=== PATIENT | female | born 1960 | race African-American/Black ===

== ENCOUNTER 2018-06-16 09:29 | Observation (INO) | payer MEDICARE ==
--- NOTE | 2018-06-16 10:15 | PDOC ---
History of Present Illness - General History Source: Patient Exam Limitations: No Limitations - History of Present Illness Initial Comments: 06/16/18 10:22 The patient is a 58 year old with past medical history here today for evaluation of headache and weakness. The patient reports that she has had persistent headache that radiates from the back of her head down her left arm and leg that occurs almost everyday for the past 3 months. She also notes she has been having left sided weakness in both her upper and lower extremities for the past 3 months. She reports that her symptoms are worse today. Patient denies lightheadedness. Denies fever, chills. Denies chest pain, shortness of breath. Denies nausea, vomiting, diarrhea, abdominal pain. Allergies: NKA Social history: Patient denies tobacco, alcohol, and drug use. PCP: none <Rajiv Diaz - Last Filed: 06/16/18 10:21> <James Bahena - Last Filed: 06/16/18 14:33> - General Chief Complaint: Head/Neck problem Stated Complaint: LEFT SIDED PAIN Time Seen by Provider: 06/16/18 10:10 NIH Stroke Scale - Last Known Well Date/Time & Onset Date Last Known Well: 02/20/18 - Initial Evaluation Level of consciousness: Alert Ask patient the month and their age: Answers both correctly Ask patient to open & close eyes; make fist and let go: Obeys both correctly Best gaze (horizontal eye movement): Normal Visual field testing: No visual field loss Facial paresis (Show teeth/raise eyebrows/close eyes tight): Normal symmetrical movement Motor Function: Left Arm: Drift Motor Function: Right Arm: Normal (extends arm 90 (or 45) degrees for 10 seconds without drift Motor Function: Left Leg: Drift Motor Function: Right Leg: Normal (extends leg 30 degrees for 5 seconds without drift) Limb Ataxia: No ataxia Sensory(Use pinprick test arms,legs,trunk,face/side to side): Normal Best language (Describe picture, name items, read sentences): No Aphasia Dysarthria (read several words): Normal articulation Extinction and Inattention: No abnormality - Total Score NIH Stroke Scale Score: 2 <James Bahena - Last Filed: 06/16/18 14:33> Past History <Rajiv Diaz - Last Filed: 06/16/18 10:21> - Past Medical History COPD: No - Suicide/Smoking/Psychosocial Hx Smoking History: Never smoked Hx Alcohol Use: No Drug/Substance Use Hx: No <James Bahena - Last Filed: 06/16/18 14:33> - Past Medical History Allergies/Adverse Reactions: Allergies Allergy/AdvReac Type Severity Reaction Status Date / Time No Known Allergies Allergy Verified 06/16/18 09:44 Review of Systems - Review of Systems Able to Perform ROS?: Yes Comments:: 06/16/18 10:22 A complete review of 10 out of 10 review of systems is taken and is negative apart from what is previously mentioned below and in the HPI. <Rajiv Diaz - Last Filed: 06/16/18 10:21> *Physical Exam - Vital Signs Last Vital Signs Temp Pulse Resp BP Pulse Ox 98.5 F 80 60 H 114/61 99 06/16/18 09:40 06/16/18 09:40 06/16/18 09:40 06/16/18 09:40 06/16/18 09:40 - Physical Exam Comments: 06/16/18 10:22 Vitals: Triage vital signs reviewed General Appearance: No acute distress, well nourished, well developed Head: Atraumatic Eyes: Pupils equal reactive round, extraocular movement intact Neck: Supple; No nuchal rigidity Chest Wall: Nontender Cardiac: Regular rate and rhythm, no murmurs, no rubs, no gallops Lungs: Clear to auscultation bilateral, good air movement bilaterally Abdomen: Soft, nondistended, normal bowel sounds, nontender to palpation Extremities: Full range of motion to all extremities, no cyanosis, clubbing, or edema Skin: Warm and dry, no rashes or lesions, no rash, no petechiae Neuro: + 4+/5 weakness to left upper and lower extremities. AOX3; Cranial Nerves 2-12 grossly intact, Sensation intact to all extremities Psych: Normal mood, normal affect <Rajiv Diaz - Last Filed: 06/16/18 10:21> - Vital Signs Last Vital Signs Temp Pulse Resp BP Pulse Ox 98.5 F 80 60 H 114/61 99 06/16/18 09:40 06/16/18 09:40 06/16/18 09:40 06/16/18 09:40 06/16/18 09:40 <James Bahena - Last Filed: 06/16/18 14:33> Moderate Sedation - Procedure Monitoring Vital Signs: Procedure Monitoring Vital Signs Temperature 98.5 F 06/16/18 09:40 Pulse Rate 80 06/16/18 09:40 Respiratory Rate 60 H 06/16/18 09:40 Blood Pressure 114/61 06/16/18 09:40 O2 Sat by Pulse Oximetry (%) 99 06/16/18 09:40 <Rajiv Diaz - Last Filed: 06/16/18 10:21> - Procedure Monitoring Vital Signs: Procedure Monitoring Vital Signs Temperature 98.5 F 06/16/18 09:40 Pulse Rate 80 06/16/18 09:40 Respiratory Rate 60 H 06/16/18 09:40 Blood Pressure 114/61 06/16/18 09:40 O2 Sat by Pulse Oximetry (%) 99 06/16/18 09:40 <James Bahena - Last Filed: 06/16/18 14:33> ED Treatment Course - LABORATORY CBC & Chemistry Diagram: 06/16/18 11:17 06/16/18 12:00 <James Bahena - Last Filed: 06/16/18 14:33> Medical Decision Making - Medical Decision Making 06/16/18 10:23 The patient is a 58 year old with past medical history here today for evaluation of headache and weakness. <Rajiv Diaz - Last Filed: 06/16/18 10:21> - Medical Decision Making 06/16/18 14:27 Patient with 3 month history of headaches left-sided weakness the symptoms seem to wax and wane with the severity of her headaches On examination today she had a notable for plus out of 5 upper and lower extremity weakness on the left She was not a candidate for TPA given that the symptoms have been going on for 3 months Her NIHSS stroke scale score is 2. Her CAT scan was nonischemic. She was ordered for full dose aspirin, an MRI was ordered and a neurology consultation was placed She'll be admitted to the medicine service for further management. <aJmes Bahena - Last Filed: 06/16/18 14:33> *DC/Admit/Observation/Transfer - Attestations Scribe Attestion: 06/16/18 10:23 Documentation prepared by LILLY Culp, acting as medical receptionist medical assistant for James Bahena MD. <Rajiv Diaz - Last Filed: 06/16/18 10:21> - Discharge Dispostion Decision to Admit order: Yes <James Bahena - Last Filed: 06/16/18 14:33> Diagnosis at time of Disposition: Weakness
[2018-06-16 11:25] LABS: BASO % 1.1 % (0-2.0); EOS % 1.6 % (0-4.5); HEMATOCRIT 36.8 % (32.4-45.2); HEMOGLOBIN 13.2 GM/dL (10.7-15.3); LYMPH % 34.7 % (8-40); MCH 34.3 pg (25.7-33.7); MCHC 35.8 g/dl (32.0-36.0); MEAN CELL VOLUME 95.6 fl (80-96); MEAN PLT VOLUME 7.8 fl (7.5-11.1); MONO % 8.7 % (3.8-10.2); NEUT % 53.9 % (42.8-82.8); PLATELET COUNT 237 K/MM3 (134-434); RBC 3.85 M/mm3 (3.60-5.2); RDW 13.3 % (11.6-15.6); WHITE BLOOD COUNT 4.5 K/mm3 (4.0-10.0)
[2018-06-16 11:52] LABS: INR 1.01 (0.83-1.09); PROTHROMBIN TIME (PATIENT) 11.9 SEC (9.7-13.0)
[2018-06-16] MEDS ORDERED: ACETAMINOPHEN 1000 MG/100 ML VIAL (NON FORMULARY) IVPB ONE (12:02)
[2018-06-16] MEDS ORDERED: METOCLOPRAMIDE HCL INJECTION 10 MG/2 ML VIAL IVPB ONE (12:02)
[2018-06-16] MEDS ORDERED: ACETAMINOPHEN INJECTION 100 ML IVPB ONE (12:37)
[2018-06-16] MEDS ORDERED: METOCLOPRAMIDE HCL INJECTION 10 MG/2 ML VIAL ONE ×2 (12:37→12:44)
[2018-06-16 14:03] LABS: ALBUMIN 3.9 g/dl (3.4-5.0); ALK PHOS 68 U/L (45-117); ANION GAP 6 MMOL/L (8-16); BILIRUBIN,TOTAL 0.2 mg/dL (0.2-1); BLOOD UREA NITROGEN 14 mg/dL (7-18); CALCIUM 8.7 mg/dL (8.5-10.1); CHLORIDE 108 mmol/L (98-107); CO2 27 mmol/L (21-32); CREATININE 0.7 mg/dL (0.55-1.3); GLUCOSE,RANDOM 82 mg/dL (74-106); SGOT/AST 14 U/L (15-37); SGPT/ALT 24 U/L (13-61); SODIUM 140 mmol/L (136-145); TOT PROT 7.5 g/dl (6.4-8.2)
[2018-06-16] MEDS ORDERED: ASPIRIN 325 MG ENTERIC COATED TABLET (FP) PO ONE (14:30)
[2018-06-16] MEDS ORDERED: ASPIRIN COATED 81 MG TABLET.EC ONE (15:04)
[2018-06-16] MEDS ORDERED: ACETAMINOPHEN 325 MG TABLET (FP) PO PRN (15:21)
--- NOTE | 2018-06-16 15:25 | HP ---
Admitting History and Physical - Primary Care Physician PCP: None - Admission Chief Complaint: I have a headache History of Present Illness: Ms Garcia is a very pleasant 58 year old female who comes in with 3 month history of L sided headache. She says that it happens everyday. It is not constant but she does not know what makes it come on. Sometimes she says the pain goes away completely, other times she says it lessens but is still present. She cannot tell me how long a normal episode lasts. She has left arm weakness and tingling associated with it. She denies lightheadedness, dizziness , photophobia, phonophobia, chest pain, shortness of breath, nausea, vomiting, abdominal pain, diarrhea, constipation, difficulty or pain on urination, or swelling. History Source: Patient Limitations to Obtaining History: No Limitations - Past Medical History Additional Past Medical History: No PMHx - Past Surgical History Past Surgical History: Yes: None - Smoking History Smoking history: Never smoked - Alcohol/Substance Use Hx Alcohol Use: No History of Substance Use: reports: None - Social History ADL: Independent History of Recent Travel: No Home Medications - Allergies Allergies/Adverse Reactions: Allergies Allergy/AdvReac Type Severity Reaction Status Date / Time No Known Allergies Allergy Verified 06/16/18 09:44 Family Disease History - Family Disease History Family History: Unremarkable Family Disease History: Other: Father (, unknown cause) Review of Systems Findings/Remarks: Full review of systems obtained, as per HPI and otherwise negative Physical Examination Vital Signs: Vital Signs Temperature 36.9 C 06/16/18 09:40 Pulse Rate 73 06/16/18 14:20 Respiratory Rate 18 06/16/18 14:20 Blood Pressure 112/72 06/16/18 14:20 O2 Sat by Pulse Oximetry (%) 99 06/16/18 14:20 Constitutional: Yes: Well Nourished, No Distress, Calm Eyes: Yes: Conjunctiva Clear, EOM Intact, PERRL HENT: Yes: Atraumatic, Normocephalic Cardiovascular: Yes: Regular Rate and Rhythm. No: Gallop, Murmur, Rub Respiratory: Yes: Regular, CTA Bilaterally. No: Rales, Rhonchi, Wheezes Gastrointestinal: Yes: Normal Bowel Sounds, Soft. No: Distention, Tenderness Extremities: Yes: WNL Edema: No ...Motor Strength: LUE (4/) Labs: CBC, BMP 06/16/18 11:17 06/16/18 12:00 Imaging - Results Cat Scan: Report Reviewed Other: Other (ECHO read reviewed) Problem List - Problems (1) Weakness Assessment/Plan: -concern for possible chronic stroke -admit to telemetry observation -ECHO reviewed -carotid ultrasound ordered -begin low dose aspirin -check lipid panel -MRI ordered -neurology consulted Code(s): R53.1 - WEAKNESS
--- NOTE | 2018-06-16 15:44 | ECHO ---
Version: 1 Name: DORA BLANCO Exam: Adult Echocardiogram Study Date: 06/16/2018, 3:10 PM Age: 58 Years MMode/2D Measurements & Calculations IVSd: 0.96 cm LVIDs: 1.96 cm LVIDd: 2.25 cm LVPWd: 1.09 cm ACS: 1.94 cm LVOT diam: 1.90 cm Doppler Measurements & Calculations Lat Peak E' [place]: 7.2 cm/sec Med Peak E' [place]ino: 7.8 cm/sec Left Ventricle The left ventricular size, thickness and function are normal. Ejection Fraction = 55-60%. Right Ventricle The right ventricle is grossly normal size. The right ventricular systolic function is grossly leatha l. Atria Normal left and right atrial size and function. Grossly intact interatrial septum with no obvious sh unt by color doppler. Mitral Valve The mitral valve is normal in structure and function. There is no mitral valve stenosis. There is mi ld mitral regurgitation. Tricuspid Valve The tricuspid valve is normal in structure and function. There is mild tricuspid regurgitation. Aortic Valve There is mild aortic sclerosis.;. No hemodynamically significant valvular aortic stenosis. No aortic regurgitation is present. Pulmonic Valve The pulmonic valve is not well seen, but is grossly normal. Great Vessels The aortic root is normal size. Pericardium/Pleura There is no pericardial effusion. Summary Statements The left ventricular size, thickness and function are normal Ejection Fraction = 55-60%. There is mild mitral regurgitation. There is mild tricuspid regurgitation. There is mild aortic sclerosis.; There is no pericardial effusion. Grossly intact interatrial septum with no obvious shunt by color doppler MD Hawley *Francescone 06/16/2018, 3:44 PM Ordering Physician: Deny Gray Performed By: Latasha Bliss
--- NOTE | 2018-06-16 15:51 | EKG ---
Test Reason : Blood Pressure : / mmHG Vent. Rate : 073 BPM Atrial Rate : 073 BPM P-R Int : 168 ms QRS Dur : 066 ms QT Int : 372 ms P-R-T Axes : 062 033 034 degrees QTc Int : 409 ms NORMAL SINUS RHYTHM NORMAL ECG NO PREVIOUS ECGS AVAILABLE Confirmed by ABIMBOLA BELL, PIA ([id number]) on 06/16/2018 3:51:35 PM Referred By: Confirmed By:PIA DIALY MD
[2018-06-16 16:26] VITALS: BMI 29.5
[2018-06-17 07:33] LABS: BASO % 0.8 % (0-2.0); EOS % 2.6 % (0-4.5); HEMATOCRIT 35.5 % (32.4-45.2); HEMOGLOBIN 12.6 GM/dL (10.7-15.3); LYMPH % 40.2 % (8-40); MCH 33.8 pg (25.7-33.7); MCHC 35.5 g/dl (32.0-36.0); MEAN CELL VOLUME 95.4 fl (80-96); MEAN PLT VOLUME 7.5 fl (7.5-11.1); MONO % 8.9 % (3.8-10.2); NEUT % 47.5 % (42.8-82.8); PLATELET COUNT 238 K/MM3 (134-434); RBC 3.72 M/mm3 (3.60-5.2); RDW 13.2 % (11.6-15.6); WHITE BLOOD COUNT 4.3 K/mm3 (4.0-10.0)
[2018-06-17 08:30] LABS: ANION GAP 8 MMOL/L (8-16); BLOOD UREA NITROGEN 15 mg/dL (7-18); CHLORIDE 107 mmol/L (98-107); CO2 24 mmol/L (21-32); CREATININE 0.8 mg/dL (0.55-1.3); GLUCOSE,RANDOM 108 mg/dL (74-106); MAGNESIUM 1.8 mg/dL (1.8-2.4); PHOSPHOROUS 3.9 mg/dL (2.5-4.9); POTASSIUM 4.4 mmol/L (3.5-5.1); SODIUM 140 mmol/L (136-145)
[2018-06-17 08:33] LABS: CHOLESTEROL 212 mg/dL (50-200); HDL CHOLESTEROL 88 mg/dL (40-60); TRIGLYCERIDES 95 mg/dL (0-150)
[2018-06-17] MEDS: ASPIRIN 81 MG CHEWABLE TABLETS PO SCH (09:14)
--- NOTE | 2018-06-17 11:47 | CON.NEURO ---
Consult Consult Specialty:: NEUROLOGY-[facility] Reason for Consultation:: Headache/Weakness - History of Present Illness History of Present Illness: Ms Garcia is a very pleasant 58 year old female who comes in with 3 month history of L sided headache. She says that it happens everyday. It is not constant but she does not know what makes it come on. Sometimes she says the pain goes away completely, other times she says it lessens but is still present. She cannot tell me how long a normal episode lasts. She has left arm weakness and tingling associated with it. She denies lightheadedness, dizziness , photophobia, phonophobia, chest pain, shortness of breath, nausea, vomiting, abdominal pain, diarrhea, constipation, difficulty or pain on urination, or swelling. Ms. Garcia tells me she has had above pain in neck x 3 years, was internittent but became near daily 3 months ago. Pain is cervical on left side, worsens with neck movement, pressure type, 6/10 intensity, radiates up to left occiput and down to medial border of scapula.+ left arm paresthesias, at times these occur in left leg, no particular distribution. denies visual symptoms - Past Surgical History Past Surgical History: Yes: None - Alcohol/Substance Use Hx Alcohol Use: No History of Substance Use: reports: None - Smoking History Smoking history: Never smoked Have you smoked in the past 12 months: No - Social History ADL: Independent History of Recent Travel: No Home Medications - Allergies Allergies/Adverse Reactions: Allergies Allergy/AdvReac Type Severity Reaction Status Date / Time No Known Allergies Allergy Verified 06/16/18 09:44 Family Disease History - Family Disease History Family Disease History: Other: Father (, unknown cause) Physical Exam-Neuro Vital Signs: Vital Signs Temperature 98.5 F 06/17/18 08:30 Pulse Rate 90 06/17/18 08:30 Respiratory Rate 20 06/17/18 08:30 Blood Pressure 145/70 06/17/18 08:30 O2 Sat by Pulse Oximetry (%) 95 06/17/18 06:00 Labs: CBC, BMP 06/17/18 07:00 06/17/18 07:00 INR, PTT INR 1.01 (0.83-1.09) 06/16/18 11:17 - Neuro Exam DTR's: 0 Left Tricep, 2+ Left Bicep, 2+ Right Bicep, 2+ Right Tricep, 2+ Left Brachioradialis, 2+ Right Brachioradialis, 2+ Left Achilles, 2+ Right Achilles Motor Strength: 4/5: Left Arm (Left Deltoid/Biceps 4/5 but may be effort related weakness), 5/5: Right Arm, Left Leg, Right Leg Imaging - Results Cat Scan: Report Reviewed (Reported without acuite abn) MRI: Image Reviewed (No DWI abn) Assessment/Plan Ms. Garcia has cervical pain radiating in left C5/6 distribution with possible weakness in Deltoid/biceps, absent left triceps jerk. I doubt any ischemic event , likely mechanical radiculopathy.MRI brain report awaited. Suggest: MRI Cspine, ESR/CRP. Toradol 30mg i/m q hours x 5 doses, this will take care of her pain for now. Nortryptilline 25mg hs Further management after c spine imaging- Than youJuanis MD
--- NOTE | 2018-06-17 16:46 | PN ---
Progress Note, Physician Chief Complaint: Ms Garcia still has weakness in LUE, currently headache has resolved. No cp, sob , n/v. - Current Medication List Current Medications: Active Medications Acetaminophen (Tylenol -) 650 mg PO Q4H PRN PRN Reason: PAIN 1-3 Last Admin: 06/17/18 11:46 Dose: 650 mg Aspirin (Asa -) 81 mg PO DAILY JAGRUTI Last Admin: 06/17/18 09:14 Dose: 81 mg Ketorolac Tromethamine (Toradol Injection -) 30 mg IVPUSH Q8H-IV JAGRUTI Stop: 06/19/18 02:01 - Objective Vital Signs: Vital Signs Temperature 36.9 C 06/17/18 08:30 Pulse Rate 90 06/17/18 08:30 Respiratory Rate 20 06/17/18 08:30 Blood Pressure 145/70 06/17/18 08:30 O2 Sat by Pulse Oximetry (%) 95 06/17/18 06:00 Constitutional: Yes: Well Nourished, No Distress, Calm Cardiovascular: Yes: Regular Rate and Rhythm. No: Gallop, Murmur, Rub Respiratory: Yes: Regular, CTA Bilaterally. No: Rales, Rhonchi, Wheezes Gastrointestinal: Yes: Normal Bowel Sounds, Soft. No: Distention, Tenderness Extremities: Yes: WNL Edema: No Labs: CBC, BMP 06/17/18 07:00 06/17/18 07:00 INR, PTT INR 1.01 (0.83-1.09) 06/16/18 11:17 Problem List - Problems (1) Weakness Assessment/Plan: -appreciate neurology assistance -MRI head performed, awaiting official read -MRI c-spine ordered -will also follow up ESR/CRP Code(s): R53.1 - WEAKNESS
[2018-06-17] MEDS: KETOROLAC TROMETHAMINE 30 MG/1 ML VIAL IVPUSH SCH (18:23)
[2018-06-18] MEDS: KETOROLAC TROMETHAMINE 30 MG/1 ML VIAL IVPUSH SCH ×2 (01:40→09:24)
[2018-06-18] MEDS: ASPIRIN 81 MG CHEWABLE TABLETS PO SCH (09:09)
--- NOTE | 2018-06-18 11:42 | DS ---
Physical Examination Vital Signs: Vital Signs Temperature 36.9 C 06/18/18 06:00 Pulse Rate 86 06/18/18 06:00 Respiratory Rate 20 06/18/18 06:00 Blood Pressure 97/64 06/18/18 06:00 O2 Sat by Pulse Oximetry (%) 95 06/17/18 21:00 Constitutional: Yes: Well Nourished, No Distress, Calm Cardiovascular: Yes: Regular Rate and Rhythm. No: Gallop, Murmur, Rub Respiratory: Yes: Regular, CTA Bilaterally. No: Rales, Rhonchi, Wheezes Gastrointestinal: Yes: Normal Bowel Sounds, Soft. No: Distention, Tenderness Extremities: Yes: WNL Edema: No Labs: CBC, BMP 06/17/18 07:00 06/17/18 07:00 Discharge Summary Reason For Visit: WEAKNESS OF LEFT SIDE OF BODY Current Active Problems Weakness (Acute) Hospital Course: Ms Garcia is a pleasant 58 year old female who presented with L sided headache and L arm pain. There was concern for possible acute vs chronic CVA and she was admitted. ECHO and carotid ultrasound were performed and negative. MRI of the head was also performed and did not show CVA. Neurology was consulted and saw patient, gave toradol with significant improvement. She had a MRI of the c- spine which showed only minor degenerative disease. She currently feels well and is safe for discharge home. 32 minutes spent in preparation of this discharge Condition: Stable - Instructions Diet, Activity, Other Instructions: resume previous diet and activity Referrals: Juanjose Pollack MD [Staff Physician] - Disposition: HOME - Home Medications Comprehensive Discharge Medication List: Ambulatory Orders Nortriptyline HCl [Pamelor -] 25 mg PO HS #30 capsule 06/18/18
[2018-06-18 11:51] VITALS: BP 109/64; PULSE 74; TEMP 98.3
== END 2018-06-18 16:33 | disposition home or self-care (01) ==
LOC: JER 09:29 → INTOOBSV 13:21 → JERBED 13:21 → J8W 15:57
PROVIDERS: ADMIT Internal Medicine; ATTEND Internal Medicine
PROC: 3E0333Z Introduction of Anti-inflammatory into Peripheral Vein, Percutaneous Approach (ICD-10-PCS; principal; 2018-06-16)
PROC: 3E033NZ Introduction of Analgesics, Hypnotics, Sedatives into Peripheral Vein, Percutaneous Approach (ICD-10-PCS; 2018-06-16)
DX: R53.1 Weakness (principal)
CPT/HCPCS: 36415; 70450-TC; 70551-TC; 71045-TC-FY; 72141-TC; 80048; 80053; 80061; 83721; 83735; 84100; 85025; 85610; 85651; 86140; 86850; 86900; 86901; 93005; 93010; 93306-TC; 93880-TC; 96374; 96375; 99283-25; G0378; J0131